=== PATIENT | female | born 1995 | race Caucasian/White ===

== ENCOUNTER 2018-03-12 06:04 | Day surgery (SDC) | payer BC ==
[2018-03-04 10:50] VITALS: BMI 22.3
[2018-03-12] MEDS ORDERED: DEXAMETHASONE SOD PHOSPHATE 4 MG/1 ML VIAL ONE (06:50)
[2018-03-12] MEDS ORDERED: ONDANSETRON 4 MG/2 ML VIAL ONE (06:50)
[2018-03-12] MEDS ORDERED: SUCCINYLCHOLINE CHLORIDE 200 MG/10 ML VIAL ONE (06:51)
[2018-03-12] MEDS ORDERED: MIDAZOLAM HCL 2 MG/2 ML SINGLE DOSE VIAL ONE (06:51)
[2018-03-12] MEDS ORDERED: ROCURONIUM BROMIDE 50 MG/5 ML VIAL ONE (06:51)
[2018-03-12] MEDS ORDERED: PROPOFOL 20 ML ONE ×2 (06:51→06:53)
[2018-03-12] MEDS ORDERED: PROMETHAZINE HCL 25 MG/1 ML VIAL ONE (07:25)
[2018-03-12] MEDS ORDERED: oxyCODONE HCL 5 MG TABLET PO PRN (08:41)
[2018-03-12] MEDS ORDERED: ACETAMINOPHEN 1000 MG/100 ML VIAL (NON FORMULARY) IVPB ONE (08:42)
[2018-03-12] MEDS ORDERED: LACTATED RINGERS SOLUTION 1,000 ML IV SCH (08:45)
--- NOTE | 2018-03-12 08:45 | OP ---
Operative Note - Note: Operative Date: 03/12/18 Pre-Operative Diagnosis: chronic tonsillitis Operation: tonsillectomy Post-Operative Diagnosis: Same as Pre-op Surgeon: Dariel Ziegler Anesthesiologist/BABY COUNSELOR: Nicole Marshall Anesthesia: General Specimens Removed: tonsils Estimated Blood Loss (mls): 5 Fluid Volume Replaced (mls): 500 Operative Report Dictated: Yes
[2018-03-12] MEDS ORDERED: ACETAMINOPHEN INJECTION 100 ML IVPB ONE (08:49)
--- NOTE | 2018-03-12 09:08 | OP ---
DATE OF OPERATION: 03/12/2018 PREOPERATIVE DIAGNOSIS: Chronic tonsillitis. POSTOPERATIVE DIAGNOSIS: Chronic tonsillitis. PROCEDURE: Tonsillectomy. SURGEON: Dariel Ziegler MD ANESTHESIA: General endotracheal by NADIA Brand. INDICATIONS: The patient is a 22-year-old woman with chronic tonsil stones refractory to medical management. She requested tonsillectomy. The nature and purpose of the proposed procedure as well as the risks, benefits, alternatives, and possible complications were discussed in detail with the patient who appears to understand and wishes to proceed with surgery. All questions were answered, and informed consent was given by the patient. PROCEDURE DESCRIPTION: With the patient under general endotracheal anesthesia in the supine position, she was prepped and draped in the usual sterile fashion. A mouth gag was placed, keeping the tongue and endotracheal tube in the midline position , and was suspended on a Gaming stand. Tonsils were dissected from their underlying tonsillar fossae with a Coblation EVAC 70 wand on default settings, and hemostasis was achieved with the same. At the conclusion of the procedure, the mouth gag was taken off of suspension and removed. When the patient awakened, she was extubated and discharged to the recovery room in satisfactory condition. ESTIMATED BLOOD LOSS: < 5 mL COMPLICATIONS: None. SPECIMENS: Sent for pathologic evaluation. DARIEL ZIEGLER M.D. /[id number] MTDD
[2018-03-12 10:27] VITALS: TEMP 98.4
[2018-03-12 10:52] VITALS: BP 115/75; PULSE 67
--- NOTE | 2018-03-15 18:10 | PATH ---
Surgical Pathology Report Patient Name: ALETHEA MENDIOLA Med. Rec. #: [id number] /Age/Gender: 1995 (Age: 22) / F Account: [id number] Location: [facility] AMBUL[facility]ORY Taken: 03/12/2018 Received: 03/12/2018 Reported: 03/15/2018 Physicians: Dariel Ziegler Specimen(s) Received BILATERAL TONSILS Clinical History Chronic tonsil stones Final Diagnosis BILATERAL TONSILS, RESECTION: TWO PORTIONS OF TONSILS TISSUE WITH REACTIVE LYMPHOID FOLLICLE HYPERPLASIA AND FOCAL ACUTE INFLAMMATION IN THE LINING SQUAMOUS EPITHELIUM. Electronically Signed Anuradha Elizalde M.D. Gross Description Received in formalin labeled "bilateral tonsils," are 2 soni, undesignated tonsils measuring 1.8 x 1.0 x 1.0 cm and 2.1 x 1.5 x 1.0 cm. The outer surfaces are soni, convoluted and vary from smooth to cauterized. Sectioning reveals homogeneous soni parenchyma with cryptic architecture. Registered Nurses sections are submitted in 2 cassettes as follows: 1-larger tonsil; 2-smaller tonsil. 03/14/2018 [facility]03/14/2018
== END 2018-03-12 10:55 | disposition home or self-care (01) ==
LOC: FASU 06:04 → EDBD 07:30 → FASU 10:55
PROVIDERS: ATTEND Otolaryngology
PROC: 0CTPXZZ Resection of Tonsils, External Approach (ICD-10-PCS; principal; 2018-03-12 07:53)
DX: J35.01 Chronic tonsillitis (principal)
CPT/HCPCS: 84703; 88304-TC; 94760; J0131